=== PATIENT | female | born 1950 | race Caucasian/White ===

== ENCOUNTER 2017-05-26 08:37 | Day surgery (SDC) | payer BC ==
[2017-05-23 13:05] LABS: HEMATOCRIT 45.4 % (36.0-48.0)
[2017-05-23 13:31] LABS: A/G RATIO 1.3 (0.7-1.9); ALBUMIN 3.9 G/DL (3.5-5.0); ALKALINE PHOSPHATASE 68 U/L (45-117); CALCIUM, SERUM 9.5 MG/DL (8.5-10.4); CHLORIDE, SERUM 106 MMOL/L (96-112); CO2 (CARBON DIOXIDE) 27 MMOL/L (24-34); GFR AFRICAN AMERICAN 76 ML/MIN (>=60); GFR NON AFRICAN AMERICAN 66 ML/MIN (>=60); GLUCOSE, SERUM 110 MG/DL (60-99); POTASSIUM, SERUM 4.3 MMOL/L (3.5-5.3); SGOT(AST) 15 U/L (5-40); SGPT(ALT) 23 U/L (5-65); SODIUM, SERUM 140 MMOL/L (135-148); TOTAL BILIRUBIN 0.5 MG/DL (0-1.2); TOTAL PROTEIN 6.9 G/DL (6.0-8.5)
[2017-05-23 13:32] LABS: BUN (BLOOD UREA NITROGEN) 14 MG/DL (6-23)
[~2017-05-26] VITALS: Ht 158.8 cm; Wt 104.1 kg
--- NOTE | ~2017-05-26 | OP ---
Record Of Operation [facility] [address] [place]. [address] NAME: JANICE PEÑA : 48 STATUS : [facility]#: [id number] AGE: 67 ADM/REG DATE : 05/26/17 MR#: [id number] REPORT SERV DATE: 05/27/17 DICTATED BY: BRADLEY RODRIGUEZ DATE: 05/27/17 REPORT STATUS : Draft TRANSCRIBED BY: MODL DATE: 05/27/17 DATE OF PROCEDURE: 05/26/2017 PREOPERATIVE DIAGNOSIS: Chronic cholecystitis with cholelithiasis. POSTOPERATIVE DIAGNOSIS: Chronic cholecystitis with cholelithiasis. PROCEDURE: Laparoscopic cholecystectomy (two-site). Please use the exact enrollment management manager of the one I just dictated on Tali Sosa, ID #[id number] with obvious change to the demographics. BRIGID/SUSANA Bradley Rodriguez M.D. / [id number] CC: Mary Vo M.D.
[~2017-05-26 08:37] MED LIST: ACET500CAP PO; ASAB PO; BELVIQ XR20 MG PO; BL CHROMIUM200 MCG PO; CALTRA600D PO; FLONASE NAS; GLUCPH PO; IBU-200200 MG PO; INVOKANA300 MG PO; MULTIVIT/MIN PO; OTC STOOL SOFTENER PO; PRIN20 PO; PROBIOTIC PO; PROVERA10 MG OR; REFRES1 OPH; SUPER B COMP PO; VITAMIN D31000 UNIT PO; ZYRTEC ALLGY10 MG PO
== END 2017-05-26 15:58 | disposition home or self-care (01) ==
LOC: SDC 08:37
PROVIDERS: Specialist
PROC: 0FT44ZZ Resection of Gallbladder, Percutaneous Endoscopic Approach (ICD-10-PCS; principal; 2017-05-26 10:00)
DX: K80.10 Calculus of gallbladder with chronic cholecystitis without obstruction (principal); I10 Essential (primary) hypertension; E11.9 Type 2 diabetes mellitus without complications; E66.01 Morbid (severe) obesity due to excess calories; H91.93 Unspecified hearing loss, bilateral; K58.9 Irritable bowel syndrome, unspecified; M19.90 Unspecified osteoarthritis, unspecified site; Z68.41 Body mass index [BMI] 40.0-44.9, adult; Z96.1 Presence of intraocular lens; Z98.41 Cataract extraction status, right eye; Z98.42 Cataract extraction status, left eye; Z90.710 Acquired absence of both cervix and uterus; Z87.01 Personal history of pneumonia (recurrent); Z85.42 Personal history of malignant neoplasm of other parts of uterus; Z79.82 Long term (current) use of aspirin; Z79.51 Long term (current) use of inhaled steroids; Z79.84 Long term (current) use of oral hypoglycemic drugs; Z79.899 Other long term (current) drug therapy
CPT/HCPCS: 76000; 80053; 82962; 85014; 85018; 88304; 93005; A9270-GY; J0690; J2250; J2405; J2710; J3010